=== PATIENT | male | born 1950 | race Caucasian/White ===

== ENCOUNTER 2016-08-27 08:47 | Outpatient (CLI) | payer BC ==
[2016-08-27 09:21] LABS: ALBUMIN/GLOBULIN RATIO 1.4 (1.0-2.2); BASOPHILS # (AUTO) 0.1 10^3/uL (0.0-0.1); BASOPHILS % (AUTO) 1.2 %; BILIRUBIN,TOTAL 0.6 mg/dL (0.2-1.0); BUN - BLOOD UREA NITROGEN 24 mg/dL (6-20); CALCIUM 9.3 mg/dL (8.5-10.3); CARBON DIOXIDE - CO2 28 mmol/L (21-32); CHLORIDE 100 mmol/L (101-111); CHOL/HDL RATIO 3.6 (<5.0); CHOLESTEROL 232 mg/dL; CREATININE 1.3 mg/dL (0.6-1.2); EOSINOPHILS # (AUTO) 0.4 10^3/uL (0.0-0.7); EOSINOPHILS % (AUTO) 5.9 %; GFR - MDRD 56 (>89); GLUCOSE 118 mg/dL (70-100); HCT - HEMATOCRIT 44.8 % (42.0-52.0); HDL CHOLESTEROL 65 mg/dL; LYMPHOCYTES # (AUTO) 2.2 10^3/uL (1.5-3.5); LYMPHOCYTES % (AUTO) 29.2 %; MEAN CORPUSCULAR HEMOGLOBIN 30.6 pg (27.0-31.0); MEAN CORPUSCULAR HGB CONC 33.5 g/dL (32.0-36.0); MEAN CORPUSCULAR VOLUME 91.5 fL (80.0-94.0); MEAN PLATELET VOLUME 8.2 fL (7.4-11.4); MONOCYTES # (AUTO) 0.7 10^3/uL (0.0-1.0); MONOCYTES % (AUTO) 9.3 %; NEUTROPHILS # (AUTO) 4.1 10^3/uL (1.5-6.6); NEUTROPHILS % (AUTO) 54.4 %; NUCLEATED RED BLOOD CELLS AUTO 0.1 /100WBC; POTASSIUM 4.3 mmol/L (3.5-5.0); RED BLOOD COUNT 4.89 10^6/uL (4.70-6.10); SODIUM 136 mmol/L (135-145); TOTAL PROTEIN 7.1 g/dL (6.7-8.2); TRIGLYCERIDES 190 mg/dL; UNCORRECTED WHITE BLOOD COUNT 7.5 x10^3/uL; URIC ACID 6.6 mg/dL (2.6-7.2); VLDL CHOLESTEROL 38 mg/dL; WHITE BLOOD COUNT 7.5 x10^3/uL (4.8-10.8)
== END 2016-08-27 08:48 | disposition home or self-care (01) ==
LOC: LAB 08:47
PROVIDERS: ATTEND Family Medicine
DX: E78.5 Hyperlipidemia, unspecified (principal)
CPT/HCPCS: 36415; 80053; 80061; 82570; 84443; 84550; 85025